=== PATIENT | female | born 1970 | race Caucasian/White ===

== ENCOUNTER 2024-04-19 11:40 | Emergency (ER) | payer MEDICAID ==
[~2024-04-19] VITALS: Ht 175.3 cm; Wt 63.0 kg
[2024-04-19 11:53] VITALS: O2SAT 98
[2024-04-19] MEDS ORDERED: CIPR1DRO2 RIGHT EAR (12:43)
[2024-04-19 13:11] VITALS: BP 147/78; PULSE 57; RESP 17; TEMP 98.4; O2SAT 100
== END 2024-04-19 13:14 | disposition home or self-care (01) ==
LOC: ER 12:06
DX: H60.503 Unspecified acute noninfective otitis externa, bilateral (principal); Z98.890 Other specified postprocedural states
CPT/HCPCS: 99283